=== PATIENT | male | born 1970 | race Caucasian/White ===

== ENCOUNTER 2024-11-12 09:18 | Emergency (ER) | payer MEDICARE, OTHER, SELFPAY ==
--- NOTE | ~2024-11-12 | XR_ITS ---
EXAMINATION: XR wrist LT min 3V DATE: 11/12/2024 10:11 INDICATION: Left wrist injury and pain. TECHNIQUE: 4 views of left wrist were obtained. COMPARISON: None. FINDINGS: Alignment is normal. No fracture. Joint spaces are normal. IMPRESSION: 1. Normal left wrist. Reviewed, dictated and finalized at location A. IMPRESSION: 1. Normal left wrist.
--- NOTE | ~2024-11-12 | XR_ITS ---
EXAMINATION: XR hand RT min 3V DATE: 11/12/2024 10:12 INDICATION: Right hand injury. Fall. TECHNIQUE: 3 views of right hand were obtained. COMPARISON: None. FINDINGS: Alignment is normal. No acute fracture. There is an old healed fracture of neck of fifth me tacarpal. 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 IMPRESSION: 1. No acute fracture. Reviewed, dictated and finalized at location A. IMPRESSION: 1. No acute fracture.
--- OUTSIDE RECORDS SUMMARY | 2024-11-12 09:28 | XMS_ITS | Clinical Summary ---
Author Organization [facility] Address [address] [place] [address] Care Team Providers Care Flight Director Name Role Phone Unavailable Primary Care Provider Unavailabl e Allergies Active Allergy Reactions Criticality Noted Date Comments Codeine Itching Low 07/09/2019 Medications No known medications Active Problems No known active problems Immunizations Immunization Administration Dates Next Due (ADACEL/BOOSTRIX)(10 YR UP) TDAP VACCINE, 0.5ML, IM 07/09/2019 Social History Tobacco Use Types Packs/Day Years Used Date Smoking Tobacco: Never Smokeless Tobacco: Current Sex and Gender Information Value Date Recorded Sex Assigned at Not on file Legal 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:34 AM INSURANCE RATER Gender Identity Not on file Sexual Orientation Not on file Last Filed Vital Signs Vital Sign Reading Time Taken Comments Blood Pressure - - Pulse 78 07/09/2019 12:44 PM INSURANCE RATER Temperature 36.6 C (97.9 F) 07/09/2019 12:44 PM INSURANCE RATER Respiratory Rate - - Oxygen Saturation 98% 07/09/2019 12:44 PM INSURANCE RATER Inhaled Oxygen Concentration - - Weight 103.4 kg (228 lb) 07/09/2019 12:44 PM INSURANCE RATER Height 188 cm (6' 2 ) 07/09/2019 12:44 PM INSURANCE RATER Body Mass Index 29.27 07/09/2019 12:44 PM INSURANCE RATER Plan of Treatment Health Maintenance Due Date Last Done Comments HEPATITIS B VACCINES (1 of 3 - 19+ 3-dose series) 1989 COLORECTAL SCREENING 2015 Colorectal Cancer Screening 2015 FIT-DNA Q 3 years 2015 FIT/FOBT Q 1 year 2015 Flex Sig/CT Colonography Q 5 years 2015 ZOSTER VACCINE (1 of 2) 2020 INFLUENZA VACCINE (#1) 2024 DTAP/TDAP/TD VACCINES (2 - T d or Tdap) 07/09/2029 07/09/2019 PNEUMOCOCCAL VACCINE 0-49 YEARS Aged Out No longer eligible based on patient's age to complete this topic Insurance MEDICARE PART A AND B
--- OUTSIDE RECORDS SUMMARY | 2024-11-12 09:28 | XMS_ITS | Encounter Summary ---
Author Name [facility] Address [address] [place] [address] Care Team Providers Care Manager Language Name Role Phone LUISA MORROW Primary Care Provider UnavailAVA Lopez Primary Care Provider Unavailabl e Insurance Providers: All historical and current Section Date Range: From patient's date of to the date document was created. This section includes the names of all active insurance providers for the patient. Insurance Provider Type of Coverage Plan Name Start of Policy Coverage End of Policy Coverage Group Number Member ID Insurance Provider's Telephone Number Policy Nieves's Name Patient's Relationship to Policy Nieves MEDICARE (WNR) MEDICARE (M) PART B Jul 17, 2017 PART B [id number] [phone] Ryan DAVIDSON PATIENT MEDICARE (WNR) MEDICARE (M) PART B Jul 17, 2017 PART B [id number] [phone] Ryan DAVIDSON PATIENT MEDICARE (WNR) MEDICARE (M) PART B Jul 17, 2017 PART B [id number] [phone] Ryan DAVIDSON PATIENT MEDICARE (WNR) MEDICARE (M) PART B Jul 17, 2017 PART B [id number] Ryan DAVIDSON PATIENT MEDICARE (WNR) MEDICARE (M) PART A Mar 17, 2016 PART A [id number] [phone] Ryan DAVIDSON PATIENT MEDICARE (WNR) MEDICARE (M) PART A Mar 17, 2016 PART A [id number] Ryan DAVIDSON PATIENT MEDICARE (WNR) MEDICARE (M) PART A Mar 17, 2016 PART A [id number] [phone] Ryan DAVIDSON PATIENT MEDICARE (WNR) MEDICARE (M) PART A Mar 17, 2016 PART A [id number] Ryan DAVIDSON PATIENT OFFICE OF REGIONAL COUNS [id number] TORT FEASOR TORT FEASO R Feb 27, 2010 TORT FEASOR [id number] [phone] Ryan DAVIDSON PATIENT Selected Encounter This section includes the information on record at [place] for the Encounter. Date/Time Encounter Type Encounter Description Reason Provider Source Jan 26, 2024 03:20 PM TARGETED CASE MANAGEMENT ADMIN PAT ACTIVTIES (MASNONCT) ICD-10-CM Y93.E6 Activity, residential relocation LORNA PRADO Encounter Template Text not used by [place] Assessments - Encounter Diagnoses This section includes the primary and secondary diagnoses documented for the Encounter. Date/Time Primary/Secondary Diagnosis Diagnosis Name Provider Source Jan 26, 2024 03:20 PM PRIMARY Activity, residential relocation LORNA PRADO [facility] Plan of Treatment: Future Appointments (+ 6 months) and Future Tests (+/- 45 days) The Plan of Treatment section includes future care activities for the patient from all [place] treatmentfacilities. This section includes future appointments and future orders which are active, pending or scheduled. Future Appointments This section includes appointments that were scheduled to occur 6 months from the date of the Encounter, up to a maximum of 20 appointments. The data comes from all [place] treatment facilities. Appointment Date/Time Appointment Type Appointme nt Facility Name Jan 27, 2024 01:30 PM AMBULATORY - NONE NATALIYA DOWELL [facility] Jan 27, 2024 02:30 PM AMBULATORY - MEDICINE [facility] Feb 15, 2024 09:00 AM AMBULATORY - NONE [facility] Feb 15, 2024 10:00 AM AMBULATORY - MEDICINE [facility] Feb 22, 2024 01:30 PM AMBULATORY - SURGERY [facility] Mar 15, 2024 09:30 AM AMBULATORY - NONE [facility]SE POWERS [facility] Lab Results: +/- 30 days of the encounter This section includes the Chemistry and Hematology Lab Results on record with [place] for the patient. Radiology Reports and Pathology Reports are provided separately, in subsequent sections. Lab Results This section contains the Chemistry/Hematology Results that were resulted 30 days before or 30 daysafter the date of the Encounter. Date/Time Source Result Type Result - Unit Interpretation Reference Range Comment Jan 27, 2024 01:08 PM [email or web address] [facility] VITAMIN B12 Specimen Type: SERUM No comment entered. Ordering Provider: LUISA MORROW Report Released Date/Time: Jan 25, 2024 04:21 PM Reporting Lab: [facility] [address] [facility] [address] Performing Lab: [facility] [address] [facility] [phone] VITAMIN B12 (FV) 221 pg/mL [id number] Jan 27, 2024 01:08 PM [facility] PSA (FV) Specimen Type: SERUM No comment entered. Ordering Provider: LUISA MORROW Report Released Date/Time: Jan 25, 2024 04:21 PM Reporting Lab: [facility] [address] [facility] [phone] Performing Lab: [facility] [address] [facility] [phone] PSA (FV) 0.32 ng/mL 0.0-4.0 Jan 27, 2024 01:08 PM [facility] TSH (FV) Specimen Type: SERUM No comment entered. Ordering Provider: LUISA MORROW Report Released Date/Time: Jan 25, 2024 04:21 PM Reporting Lab: [facility] [address] [facility] [phone] Performing Lab: [facility] [address] [facility] [phone] TSH (FV) 0.68 u[IU]/mL 0.45-5.33 Jan 27, 2024 01:[email or web address] [facility] O[facility] CBC Specimen Type: BLOOD No comment entered. Ordering Provider: LUISA MORROW Report Released Date/Time: Jan 25, 2024 04:21 PM Reporting Lab: [address] [address] Performing Lab: [address] [address] MPV (FV) 7.9 fL 7.4-10.4 RDW (FV) 14.5 11.5-14.5 HCT (FV) 43.1 40-52 HGB (FV) 14.7 g/dL 13-18 PLT (FV) 264 10*3/uL 150-440 WBC (FV) 9.5 10*3/uL 3.8-10.6 RBC (FV) 5.08 10*6/uL 4.4-5.9 MCV (FV) 84.9 fL 80-100 MCH (FV) 29.0 pg 26-34 MCHC (FV) 34.2 g/dL 32-36 NE% (FV) 72.2 NE# (FV) 6.8 10*3/uL 2.4-7.6 LY% (FV) 16.8 LY# (FV) 1.6 10*3/uL 1.0-4.8 MO% (FV) 7.6 MO# (FV) 0.7 10*3/uL 0.1-1.0 EO% (FV) 2.8 EO# (FV) 0.3 10*3/uL 0.0-0.4 BA% (FV) 0.6 BA# (FV) 0.1 10*3/uL 0.0-0.2 Jan 27, 2024 01:08 PM [facility] GLYCO HGB A1C Specimen Type: BLOOD Comment: Values obtained from A1C measurements can vary. For typical A1C assays, a reported value of 7.0 could actually be between 6.72 and 7.28 if measured by a reference method. A reported value of 9.0 could actually be between 8.73 and 9.27. Ref: [email or web address] [email or web address].asp. Ordering Provider: LUISA MORROW Report Released Date/Time: Jan 25, 2024 04:21 PM Reporting Lab: [address] [address] Performing Lab: [address] [address] Glyco Hgb A1C 6.1 H 4.2-5.8 Jan 27, 2024 01:08 PM [employer] [facility] LIPID PROFILE Specimen Type: PLASMA No comment entered. Ordering Provider: LUISA MORROW Report Released Date/Time: Jan 25, 2024 04:21 PM Reporting Lab: [employer] [address] [address] Performing Lab: [employer] [address] [address] CHOLESTEROL, TOTAL (FV) 240 mg/dL H 118-200 TRIGLYCERIDE (FV) 231 mg/dL H <200 LDL CHOLESTEROL (CALCULATED) 146 mg/dL HDL CHOLESTEROL (FV) 48 mg/dL >40 Jan 27, 2024 01:08 PM [employer] [facility] RENAL+LIVER PROFILE Specimen Type: PLASMA No comment entered. Ordering Provider: LUISA MORROW Report Released Date/Time: Jan 25, 2024 04:21 PM Reporting Lab: [employer] [address] [address] Performing Lab: [employer] [address] [address] GLUCOSE (FV) 113 mg/dL H 70-110 ALBUMIN (FV) 4.4 g/dL 3.4-5.0 AST (FV) 28 U/L 15-37 TOTAL BILIRUBIN (FV) 1.08 mg/dL 0.3-1.2 CHLORIDE (FV) 105 mmol/L 98-107 TOTAL PROTEIN (FV) 7.2 g/dL 6.1-7.9 SODIUM (FV) 136 mmol/L 136-145 POTASSIUM (FV) 4.2 mmol/L 3.5-5.1 CO2 (FV) 26 mmol/L 21-32 UREA NITROGEN (FV) 12 mg/dL 6-20 CALCIUM (FV) 8.7 mg/dL L 8.9-10.3 ALT (FV) 53 U/L 0-63 ALK. PHOS. (FV) 45 U/L 32-126 CREATININE (FV) 1.03 mg/dL .61-1.24 eGFR (CKD-EPI 2020) 87 L >90 Jan 27, 2024 01:08 PM [employer] [facility] URINE ALBUMIN, RANDOM URINE Specimen Type: URINE No comment entered. Ordering Provider: LUISA MORROW Report Released Date/Time: Jan 25, 2024 04:21 PM Reporting Lab: [employer] [address] [address] Performing Lab: [facility] [place] [facility] [address] [address] URINE ALBUMIN (FV) 1.0 mg/dL <1.8 ALB:CREAT RATIO (FV) 6 <29 CREATININE (FV) 156 mg/dL Advance Directives: All historical and current Section Date Range: From patient's date of to the date document was created. This section includes ALL of a patient's completed or amended [place] Advance and Rescinded Directives. The entries below indicate that a directive exists for the patient, but an actual copy is not included with this document. The data comes from all [place] facilities. Date Advance Directives Provider Source Oct 19, 2011 ADVANCE DIRECTIVE DISCUSSION BRENNA GALVAN [facility] Radiology Reports: +/- 30 days of the encounter Radiology Reports For cases when an order for radiology services may have been completed prior to the date of the Encounter, the report list includes the Radiology Reports that were completed up to 30 days before dateof the Encounter. For cases when an order for radiology services may have been completed after the date of the Encounter, the report list also includes the Radiology Reports that were completed up to30 days after date of the Encounter. The data comes from all [place] treatment facilities. Date/Time Radiology Report Provider Source Feb 15, 2024 08:[address] THORAX W/O CONT : JANNET DAVIDSON [id number] -[id number] M Exm Date: FEB 15, 2024@08:46 Req Phys: LUISA MORROW M Pat Loc: [facility] TM 1 (Req'g Loc) Img Loc: [facility] CT Service: Unknown [facility] [place] [facility] , (Case [id number] COMPLETE) CT THORAX W/O CONT (CT Detailed) CPT:21853 Reason for Study: lung cancer screening in former smoker Clinical History: Report Status: Verified Date Reported: FEB 18, 2024 Date Verified: FEB 18, 2024 Bunghole Borer E-Sig:/ES/CATERINA AVALOS Report: PROCEDURE: CT THORAX W/O CONT CLINICAL INDICATION: lung cancer screening in former smoker TECHNIQUE: Axial non-contrast images through the chest were obtained according to Low Dose CT protocol. Coronal, axial, and sagittal reformatted images were also produced. COMPARISON: None FINDINGS: Evaluation of vasculature and for adenopathy limited in absence of intravenous contrast. Lines/Tubes: None Thyroid: Unremarkable. Mediastinum/Lymphatics: No abnormal mass lesion. No pathologic by size criteria axillary, mediastinal or hilar adenopathy. Heart: No cardiomegaly. Minimal scattered pericardial calcifications involving anterior aspect of the heart. No coronary artery calcifications. Vascular: Minimal vascular calcification of the aorta. Fusiform ectasia ascending thoracic aorta which measures approximately 3.4 x 3.6 cm. Airway: Patent. Lung Screening Specific(Lung-RADS): Negative. Pulmonary Incidentals: Minimal bilateral upper lobe paraseptal emphysematous changes. Pleura: Minimal biapical pleural parenchymal scarring. No pleural effusion. No pneumothorax. Upper Abdomen: Incompletely visualized benign cyst right kidney. Visualized portions of the solid no abdominal viscera are otherwise unremarkable. Musculoskeletal: Incompletely visualized anterior cervical fusion device. No acute osseous abnormalities. No aggressive osseous lesions. Soft tissues unremarkable. Impression: 1. Lung-RADS Category 1. No suspicious pulmonary mass/nodule. Recommend 12 month screening LDCT 2. Lung-RADS Category S: - Minimal paraseptal emphysema 3. Additional Findings as described above. Primary Diagnostic Code: LUNGRADS 1: NEGATIVE Secondary Diagnostic Codes: Minor Abnormality or Abn Prev Identified Primary Interpreting Staff: CATERINA AVALOS, Staff Physician (Bunghole Borer) /CATERINA FERNANDES [facility] Encounter Notes: All associated encounter notes This section contains the clinical notes associated to the Encounter. Date/Time Encounter Note(s) Provider Source Jan 26, 2024 03:20 PM NURSING NOTE: LOCAL TITLE: TRAVELING PCMM NOTE STANDARD TITLE: NURSING NOTE DATE OF NOTE: JAN 26, 2024@15:20 ENTRY DATE: JAN 26, 2024@15:21:02 AUTHOR: LORNA PRADO EXP COSIGNER: URGENCY: STATUS: COMPLETED PCMM alert received. Chart reviewed for relocation and approved. New patient appointment -Jan@14:30 [facility] TM 1 /es/ LORNA PRADO TIRE MOLD TESTER INPATIENT CASE MANAGEMENT Signed: 01/26/2024 15:21 LORNA PRADO [facility]
--- OUTSIDE RECORDS SUMMARY | 2024-11-12 09:28 | XMS_ITS | Clinical Summary ---
Author Organization [facility] Address [address] Attn: Epic Prelude ADT [place] [address] Care Team Providers Care Bridge Painter Helper Name Role Phone Unavailable Primary Care Provider Unavailabl e Allergies Active Allergy Reactions Criticality Noted Date Comments Codeine Itching Low 07/09/2019 Immunizations Immunization Administration Dates Next Due (ADACEL/BOOSTRIX)(10 YR UP) TDAP VACCINE, 0.5ML, IM 07/09/2019 Social History Tobacco Use Types Packs/Day Years Used Date Smoking Tobacco: Never Smokeless Tobacco: Current Sex and Gender Information Value Date Recorded Sex Assigned at Not on file Legal Sex Male 8:[address] [employer] Gender Identity Not on file Sexual Orientation Not on file Last Filed Vital Signs Vital Sign Reading Time Taken Comments Blood Pressure - - Pulse 78 07/09/2019 12:[address] SPRINK[employer] Temperature 36.6 C (97.9 F) 07/09/2019 12:[address] SPRINKLER Respiratory Rate - - Oxygen Saturation - - Inhaled Oxygen Concentration - - Weight 103.4 kg (228 lb) 07/09/2019 12:[address] SPRINKL[employer] Height 188 cm (6' 2 ) 07/09/2019 12:[address] [employer] Body Mass Index 29.27 07/09/2019 12:[address] [employer] Plan of Treatment Health Maintenance Due Date [...]
--- OUTSIDE RECORDS SUMMARY | 2024-11-12 09:28 | XMS_ITS | Continuity of Care Document ---
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 E] IN URINE Negativen g/mL 03/11 Specimen Type: URINE No comment entered. Ordering Provider: RAMY DUQUE Report Released Date/Time: Mar 09, 2023 04:01 PM Reporting Lab: [address] [facility] [address] Performing Lab: [address] [address] [facility] DRUGS OF ABUSE SCREEN ETHANOL [MASS/VOLUM E] IN URINE <10mg/dL 0 - 9 03/11 Specimen Type: URINE No comment entered. Ordering Provider: RAMY DUQUE Report Released Date/Time: Mar 09, 2023 04:01 PM Reporting Lab: [address] [address] Performing Lab: [address] [address] [facility] Vital Signs Combined list of inpatient and outpatient Vital Signs from Department of Defense and Veterans Affairs, ranging from 12 months to all on record, depending upon the facility. Vital Sign Value Date Comments Source PAIN 3 02/22/2024 13:36:00 [facility] SYSTOLIC BLOOD PRESSURE 121 01/27/2024 14:59:04 [facility] DIASTOLIC BLOOD PRESSURE 86 01/27/2024 14:59:04 [facility] PULSE OXIMETRY 95 01/27/2024 14:59:[address] [facility] WEIGHT 230 01/27/2024 14:59:04 [facility] BMI 30 kg/m2 01/27/2024 14:59:04 [facility] HEIGHT 74 01/27/2024 14:59:04 [facility] TEMPERATURE 97.7 01/27/2024 14:59:04 [facility] PULSE 83 01/27/2024 14:59:04 [facility] RESPIRATION 18 01/27/2024 14:59:04 [facility] Encounters Combined list of: 1) Encounters from Department of Veterans Affairs facilities going backup to the last 18 months, not all [place] inpatient encounters are included; 2) Encounters from the Department of [facility] facilities going backup to 280 months. Location Location Details Encounter Type Encounter Number Reason For Visit Attending Provider ADM Date DC Date Status Disposition [facility] En[facility] [id number] [facility] En[facility] [id number] 01/24 [facility] TARGETED CASE MANAGEMENT [id number] Diagnos is: ICD-10- CM Y93.E6 Activit y, residen tial [place] 01/25 [facility] En[facility] [id number] 01/26 [facility] Outpatient Encounter [id number] Diagnos is: ICD-10- CM R06.00 Dyspnea , unspeci fied CRISTHIAN,CHRI EMANUEL M 01/26 [facility] SPACER BAG/RESERV OIR [id number] Diagnos is: ICD-10- CM R06.00 Dyspnea , unspeci fied ELSHERBINI ,JE 02/14 [facility] En[facility] [id number] 02/21 [facility] OFF/OP CNSLTJ NEW/EST LOW 30 [id number] Diagnos is: ICD-10- CM L57.0 Actinic keratos is ROSA BROCK 02/21 [facility] [place] [facility] Outpatient Encounter [id number] 03/15 [facility]ACO[facility] [place] [facility] Outpatient Encounter [id number] 03/30 [place] [facility] [place] [facility] Outpatient Encounter [id number] 06/22 [place] [facility] [place] [facility] Outpatient Encounter [id number] 06/22 [place] [facility] [place] [facility] Outpatient Encounter [id number] 09/21 [place] [facility] [place] REPLACED BY [facility] Outpatient Encounter [id number] 09/21 [place] REPLACED BY [facility] Social History Combined list of available smoking, tobacco, and other social history from Department of Defense and Veterans Affairs facilities. Social History Type Response Date Comment Sourc e Tobacco smoking status NHIS VA-TOBACCO FORMER USER 01/27/2024 [facility] History of tobacco use VA-TOBACCO QUIT 5 TO < 15 YRS 01/27/2024 [facility] History of tobacco use VA-TOBACCO QUIT 1 TO < 5 YRS 07/21/2022 [facility] History of tobacco use VA-TOBACCO FORMER USER 07/19/2021 [facility] History of tobacco use VA-TOBACCO FORMER USER 07/20/2020 [facility] History of tobacco use VA-TOBACCO QUIT 5 TO < 15 YRS 07/20/2018 [facility] History of tobacco use VA-TOBACCO USER E VERY DAY 07/02/2018 [facility] History of tobacco use QUIT TOBACCO >12 MO and <7 YRS AGO 01/25/2015 [facility] History of tobacco use QUIT TOBACCO >12 MO and <7 YRS AGO 04/04/2014 [facility] History of tobacco use QUIT TOBACCO >7 Y EARS AGO 06/03/2012 [facility] History of tobacco use TOBACCO MEDS OFFE RED BUT DECLINED 02/10/2012 [facility] History of tobacco use TOBACCO OFFERED S [facility] 02/02/2012 [facility] History of tobacco use LIFETIME NON-USER OF TOBACCO 10/13/2011 [facility] History of tobacco use QUIT TOBACCO >12 MO and <7 YRS AGO 02/25/2011 [facility] History of tobacco use TOBACCO OFFERRED STOP SMOKING CLINIC 11/18/2006 [facility] Plan of Care List of future care activities from [facility] facilities. Additional future care activities may be listed in the Assessment and Plan section. Date/Time Care Activity [facility] Detail [facility] - NONE AMBULATORY - NONE [facility] Advance Directives List of completed, amended, or rescinded Advance Directives on record at Department [facility] facilities. An actual copy of the Directive is not included. Date Advance Directive Provider Source 10/19/2011 ADVANCE DIRECTIVE DISCUSSION BRENNA GALVAN [facility]
[2024-11-12 09:29] VITALS: BP 142/88; PULSE 91; RESP 16; TEMP 37.1; O2SAT 97
--- NOTE | 2024-11-12 10:05 | ED.FALL ---
HPI - Fall General Chief Complaint: Fall Stated Complaint: Fall Injury/Left Wrist/Right Finger/Left Leg Time Seen by Provider: 11/12/24 09:47 Source: patient and RN notes reviewed Mode of arrival: ambulatory Limitations: no limitations History of Present Illness HPI Narrative: Patient presents today after a fall from standing height into pile of debris. He is complaining of pain to the right ribs, left wrist, right hand, and wound to the left lower leg that was sustained with the corner of a board fell on to his leg. Patient states he did strike the right cheek area to the ground as well. Denies loss of consciousness or residual headache, nausea, dizziness. He is up-to-date on his tetanus vaccine within the last 5 years. Currently rates his pain 11/24 has been taking Tylenol with some relief. Denies shortness of breath. Related Data Allergies Allergy/AdvReac Type Severity Reaction Status Date / Time codeine Allergy Mild Itching Verified 11/12/24 09:46 Review of Systems Review of Systems: CONSTITUTIONAL: Denies body aches, fever, chills, or sweats. EYES: Denies visual changes, redness, or discharge. ENT: Denies rhinorrhea, congestion, sore throat, or otalgia. CARDIOVASCULAR: Denies chest pain, palpitations, or edema. RESPIRATORY: Denies cough or dyspnea. GASTROINTESTINAL: Denies abdominal pain, nausea, vomiting, or diarrhea. GENITOURINARY: Denies dysuria or hematuria. SKIN: + laceration to left lower leg MUSCULOSKELETAL: + left wrist pain, right hand pain, right rib pain NEUROLOGIC: Denies headache, numbness, tingling, or weakness. PSYCH: Denies depression or anxiety. PMFSH Comments At time of signature, I have reviewed and agree with nursing past medical, surgical, social and family history unless otherwise noted. Please see nursing chart for further information. There is no relevant family history pertinent to the presenting complaint Exam Narrative: GENERAL: Well-appearing, well-nourished, and in no acute distress. HEAD: Normocephalic, atraumatic. EYES: EOMI. PERRL. No redness or drainage. Conjunctivae normal. ENT: Mucous membranes pink and moist. Nares clear. Teeth intact. Mild tenderness to the right upper cheek area without edema, ecchymosis. Mild pain to this area with clenching. NECK: Normal AROM. Supple. No lymphadenopathy. CHEST: No respiratory distress. Clear to auscultation. Point tenderness to the right posterior ribs without edema, crepitus, deformity, or ecchymosis. HEART: Regular rate and rhythm. No murmur appreciated. Normal peripheral pulses. EXTREMITIES: Right hand: Tenderness to the dorsum of the 3rd and 4th MCP with mild localized edema. Decreased range of motion due to swelling. Distal sensation intact. Capillary refill normal. Radial pulse normal. Left wrist: Tenderness to the distal radius and ulnar styloid with mild edema about the wrist. Bruising to the distal radius. Distal sensation intact. Capillary refill normal. Radial pulse normal. Decreased range of motion due to pain. SKIN: Warm, dry, no rash. Capillary refill normal. Normal skin turgor. 3.5 cm deep abrasion to the mid ley area with surrounding erythema, mild edema, and tenderness to palpation. No active bleeding. Area cleansed with wound cleanser NEURO: No focal deficits. Alert and oriented x3. Gait steady. PSYCH: Normal affect. No signs of depression or anxiety. Course Course Level of Care: Express Care Visit Vital Signs Vital signs: Vital Signs Temperature 98.7 F 11/12/24 09:29 Pulse Rate 91 11/12/24 09:29 Respiratory Rate 16 11/12/24 09:29 Blood Pressure 142/88 H 11/12/24 09:29 Pulse Oximetry 97 11/12/24 09:29 Oxygen Delivery Room Air 11/12/24 09:29 Temperature 98.7 F 11/12/24 09:29 Pulse Rate 91 11/12/24 09:29 Respiratory Rate 16 11/12/24 09:29 Blood Pressure 142/88 H 11/12/24 09:29 Pulse Oximetry 97 11/12/24 09:29 Oxygen Delivery Room Air 11/12/24 09:29 Reviewed MDM - Fall MDM Narrative Medical decision making narrative: X-rays are negative. Recommend ice and OTC medication for discomfort. Discussed care instructions for the abrasion. Prescription for Bactrim sent to pharmacy for redness and presume infection surrounding the abrasion. Patient is up-to-date on his tetanus vaccine. He declined rib x-ray. He declined ER transfer for evaluation of his face. Anticipatory guidance given. ED precautions given. Differential Diagnosis Differential diagnosis: Likely fracture of wrist and other (Hand fracture, contusion, abrasion, laceration) Imaging Data Radiologist's impression: ITS Impressions Hand X-Ray 11/12/24 10:14 IMPRESSION: 1. No acute fracture. Wrist X-Ray 11/12/24 10:14 IMPRESSION: 1. Normal left wrist. Critical Care Time Critical Care Time Critical Care Time: No Discharge Plan Discharge Clinical Impression: Contusion of dorsum of right hand Fall Qualifiers: Encounter type: initial encounter Qualified Code(s): W19.XXXA - Unspecified fall, initial encounter Left wrist sprain Qualifiers: Encounter type: initial encounter Qualified Code(s): S63.502A - Unspecified sprain of left wrist, initial encounter Contusion of rib on right side Qualifiers: Encounter type: initial encounter Qualified Code(s): S20.211A - Contusion of right front wall of thorax, initial encounter Abrasion of anterior left lower leg Qualifiers: Encounter type: initial encounter Qualified Code(s): S80.812A - Abrasion, left lower leg, initial encounter Patient Disposition: Home, Self-Care Condition: Stable Instructions: Antibiotic Form, Abrasion (ED), Wrist Sprain (ED) Additional Instructions: Your x-rays are all negative. Please take the Bactrim as prescribed until gone for the infection surrounding your abrasion. Ice and elevate your hand and wrist to help with the pain. Continue Tylenol or ibuprofen for your discomfort. Follow-up with your PCP in 3 days if you do not feel that the infection is improving. Go to the ER if you feel that the infection is worsening, you develop any shortness of breath. Your blood pressure was elevated above 120/80 today at Urgent Care. This puts you above the threshold for follow up. Please schedule a followup visit with your personal physician as soon as possible, for further evaluation and treatment. Even blood pressure exceeding 120/80 may indicate pre-hypertension. Patient Language: Wallisian Prescriptions: New sulfamethoxazole-trimethoprim [Bactrim DS] 800-160 mg tablet 1 tablet PO Q12H 7 Days Qty: 14 0RF Follow-up/Referrals: UNKNOWN,DOCTOR [Primary Care Provider] - Time of Disposition: 10:30
== END 2024-11-12 10:35 | disposition home or self-care (01) ==
PROVIDERS: Emergency Provider Nurse Practitioner
DX: S60.221A Contusion of right hand, initial encounter (principal); S63.502A Unspecified sprain of left wrist, initial encounter; S20.211A Contusion of right front wall of thorax, initial encounter; S80.812A Abrasion, left lower leg, initial encounter; W19.XXXA Unspecified fall, initial encounter
CPT/HCPCS: 73110; 73130; 99213; G0463